=== PATIENT | male | born 1965 | race Caucasian/White ===

== ENCOUNTER 2021-07-06 06:40 | Day surgery (SDC) | payer BC ==
[2021-07-06] VITALS (19 sets, daily range): BP systolic 131–184; BP diastolic 66–84; PULSE 57–75; TEMP 97.8–98.2
[~2021-07-06] VITALS: Ht 185.4 cm; Wt 94.2 kg
[2021-07-06 08:12] LABS: HEMATOCRIT 38.1 % (42.0-52.0); HEMOGLOBIN 12.4 g/dl (13.5-18.0); MEAN CELL VOLUME 94 fl (80.0-100.0); MEAN CORPUSCULAR HEMOGLOBIN 31 pg (27-31); MEAN CORPUSCULAR HGB CONC 33 g/dl (33.0-37.0); MEAN PLATELET VOLUME 9.1 fl (7.4-10.4); PLATELET COUNT 256 K/mm3 (130-400); RED BLOOD COUNT 4.06 M/mm3 (4.20-5.60); REDCELL DISTRIBUTION WIDTH-CV 13.5 % (11.5-14.5)
[2021-07-06] MEDS ORDERED: LOPRESSOR100 MG PO (08:18)
[2021-07-06] MEDS ORDERED: NORVASC 10MG10 MG PO (08:19)
[2021-07-06 08:20] LABS: PROTHROMBIN TIME 11.3 SECONDS (9.7-12.8)
[2021-07-06] MEDS ORDERED: CRESTOR20 MG PO (08:20)
[2021-07-06] MEDS ORDERED: DESYREL 50MG50 MG PO (08:21)
[2021-07-06] MEDS ORDERED: MOBIC 7.5MG7.5 MG PO (08:22)
[2021-07-06 08:23] LABS: PARTIAL THROMBOPLASTIN TIME 32.1 SECONDS (26.0-37.0)
[2021-07-06] MEDS ORDERED: NEURONTIN600 MG/TAB PO (08:23)
[2021-07-06] MEDS ORDERED: PRIL40 PO (08:24)
[2021-07-06] MEDS ORDERED: LASIX 20MG TABL20 MG PO (08:25)
[2021-07-06 08:26] LABS: CALCIUM 9.1 mg/dL (8.4-10.2); CREATININE, serum 1.04 mg/dL (0.72-1.25); POTASSIUM 5.1 mmol/L (3.5-4.5)
[2021-07-06] MEDS ORDERED: CENTRUM1 TA1 PO (08:26)
[2021-07-06] MEDS ORDERED: ASPIRIN 81M81 MG/TA2 PO (08:27)
[2021-07-06] MEDS ORDERED: PREVACID 15MG15 M1 PO (08:28)
[2021-07-06] MEDS ORDERED: B COMPLEX & B121 TAB PO (08:29)
[2021-07-06] MEDS ORDERED: ALEVE 220MG220 MG PO (08:30)
[2021-07-06] MEDS ORDERED: MAGNESIUM PO (08:36)
[2021-07-06] MEDS ORDERED: NITROSTAT0.4 MG/TAB SL (08:37)
[2021-07-06] MEDS ORDERED: NITRO-DUR0.4 MG/PAT TD (08:47)
--- NOTE | 2021-07-06 08:52 | NUR ---
Patient to procedure at [facility],report to Ashish Manley.
--- NOTE | 2021-07-06 08:59 | NUR ---
See merge for all medication administration times, intra and post sedation assessments.
--- NOTE | 2021-07-06 09:52 | NUR ---
Report received pt to transer to inpt.
[2021-07-06] MEDS ORDERED: TOPROL XL100 MG PO (11:21)
--- NOTE | 2021-07-06 11:58 | NUR ---
IMANI DID NOT TAKE VITALS.
[2021-07-06] MEDS ORDERED: NORCO 325 MG-51 TAB PO ×2 (14:45→14:46)
--- NOTE | 2021-07-06 17:09 | NUR ---
Patient completed flat time following heart cath via left femoral. Pressure band taken off of site. Dressing replaced. No signs of bleeding or complications at this time. Call light in reach. Fall percautions in place.
--- NOTE | 2021-07-06 18:50 | NUR ---
Patient admitted to room 354 from slab inspector. Dynamap in use to take post-op vitals. Upon initial assessment dressing clean, dry, and intact. Report recieved from Sindhu. Compression dressing taken off with no issues. BP elevated, [facility] contacted, phone ordered for Norvasc recieved, orders placed, medication administered. PRN medication ordered for back pain. All other VSS. Patient denies any further pain, discomfort, SOA, or further needs at this time. Call light in reach.
[2021-07-07] VITALS: BP 132/75; PULSE 64; TEMP 98
[2021-07-07 04:13] VITALS: BP 132/75; PULSE 64; TEMP 98
[2021-07-07 04:17] VITALS: BP 148/80; PULSE 66; TEMP 98.8
[2021-07-07 06:17] LABS: BASO # 0.1 K/mm3 (0.0-0.2); BASO % 0.4 % (0.0-2.0); EOS # 0.1 K/mm3 (0.0-0.7); EOS % 0.6 % (0.0-4.0); GRAN # 10.7 K/mm3 (1.4-6.5); GRAN % 71.3 % (42.2-75.2); HEMATOCRIT 45.2 % (42.0-52.0); LYMPH # 2.6 K/mm3 (1.2-3.4); LYMPH % 17.4 % (20.0-51.0); MEAN CELL VOLUME 93 fl (80.0-100.0); MEAN CORPUSCULAR HGB CONC 33 g/dl (33.0-37.0); MEAN PLATELET VOLUME 9.1 fl (7.4-10.4); MONO # 1.5 K/mm3 (0.1-0.6); MONO % 9.8 % (1.7-9.3); PLATELET COUNT 282 K/mm3 (130-400); RED BLOOD COUNT 4.86 M/mm3 (4.20-5.60); REDCELL DISTRIBUTION WIDTH-CV 13.3 % (11.5-14.5)
[2021-07-07 06:18] LABS: HEMOGLOBIN 14.8 g/dl (13.5-18.0); MEAN CORPUSCULAR HEMOGLOBIN 30 pg (27-31)
[2021-07-07 07:16] LABS: CALCIUM 10.1 mg/dL (8.4-10.2); CREATININE, serum 0.96 mg/dL (0.72-1.25)
[2021-07-07 07:46] VITALS: BP 142/75; PULSE 72; TEMP 97.9
[2021-07-07 09:00] VITALS: BP 142/75; PULSE 72; TEMP 97.9
--- NOTE | 2021-07-07 09:38 | NUR ---
slag worker met with patient to discuss discharge plan. Patient currently lives in [place] with his Kelsey ([phone]). Patient reports that he is independent with his ADL's and does not utilize any DME or oxygen at home. PCP is Dr. Padron and he utilizes [facility] for medications with no cost difficulty. [facility] currently [facility] and is not interested in establishing one at this time. Patient is planning on returning home and states that his will be the one picking him up. Discharge plan: Home with spouse
--- NOTE | 2021-07-07 10:34 | NUR ---
Initial visit; Patient thanked Fin[employer] for looking in on him and offering encouragement and God's blessings. Finish Carpenter will keep patient in her prayers.
[2021-07-07] MEDS ORDERED: BRILINTA90 MG PO (10:57)
[2021-07-07] MEDS ORDERED: RANEXA 500MG T500 MG PO (10:58)
[2021-07-07 11:25] VITALS: BP 134/70; PULSE 70; TEMP 97.8
--- NOTE | 2021-07-07 12:33 | NUR ---
PT DISCHARGE INSTRUCTIONS COMPLETE. INFORMATION GIVEN ABOUT MEDICATIONS AND FOLLOW UP APPOINTMENTS. IV REMOVED. ALL QUESTIONS ANSWERED.
--- NOTE | 2021-07-07 13:01 | NUR ---
Primary nurse was assisted with [phone] patient care by [employer] student Paloma Mclaughlin and [employer] instructor Reanna Zhong MSN, RN.
== END 2021-07-07 12:34 | disposition home or self-care (01) ==
LOC: COL.CAR 06:40 → MEDICAL 10:43 → COL.CAR 07-07 12:34
PROVIDERS: Internal Medicine Cardiovascular Disease
DX: I25.119 Atherosclerotic heart disease of native coronary artery with unspecified angina pectoris (principal); I73.9 Peripheral vascular disease, unspecified; I10 Essential (primary) hypertension; E78.2 Mixed hyperlipidemia; I65.23 Occlusion and stenosis of bilateral carotid arteries; Z95.1 Presence of aortocoronary bypass graft; Z87.891 Personal history of nicotine dependence; Z79.82 Long term (current) use of aspirin
CPT/HCPCS: OP; C1725; C1760; C1769; C1874; C1887; C1894; C9600; J0583; J1644; J2250; J3010; Q9967

== ENCOUNTER → 2021-11-03 | Outpatient (CLI) | payer BC ==
[~2021-11-03] MED LIST: ALEVE 220MG220 MG PO; ASPIRIN 81M81 MG/TA2 PO; B COMPLEX & B121 TAB PO; BRILINTA90 MG PO; CENTRUM1 TA1 PO; CRESTOR20 MG PO; DESYREL 50MG50 MG PO; LASIX 20MG TABL20 MG PO; LOPRESSOR100 MG PO; MAGNESIUM PO; MOBIC 7.5MG7.5 MG PO; NEURONTIN600 MG/TAB PO; NITRO-DUR0.4 MG/PAT TD; NITROSTAT0.4 MG/TAB SL; NORCO 325 MG-51 TAB PO; NORVASC 10MG10 MG PO; PREVACID 15MG15 M1 PO; PRIL40 PO; RANEXA 500MG T500 MG PO; TOPROL XL100 MG PO
== END ==
LOC: ZCOL.LAB 19:48
DX: Z11.9 Encounter for screening for infectious and parasitic diseases, unspecified (principal)

== ENCOUNTER 2022-03-09 07:14 | Day surgery (SDC) | payer BC ==
[~2022-03-09] VITALS: Ht 185.4 cm; Wt 90.0 kg
[2022-03-09] VITALS (17 sets, daily range): BP systolic 115–155; BP diastolic 66–83; PULSE 60–73; TEMP 97.3–98.2
[2022-03-09 08:15] LABS: HEMOGLOBIN 10.4 g/dl (13.5-18.0); MEAN CELL VOLUME 92 fl (80.0-100.0); MEAN CORPUSCULAR HEMOGLOBIN 30 pg (27-31); MEAN CORPUSCULAR HGB CONC 32 g/dl (33.0-37.0); MEAN PLATELET VOLUME 8.7 fl (7.4-10.4); PLATELET COUNT 323 K/mm3 (130-400); RED BLOOD COUNT 3.51 M/mm3 (4.20-5.60); REDCELL DISTRIBUTION WIDTH-CV 14.3 % (11.5-14.5)
[2022-03-09 08:18] LABS: INR 1.1 (0.8-3.0); PROTHROMBIN TIME 12.2 SECONDS (9.7-12.8)
[2022-03-09 08:20] LABS: PARTIAL THROMBOPLASTIN TIME 38.8 SECONDS (26.0-37.0)
[2022-03-09 08:24] LABS: CALCIUM 9.2 mg/dL (8.4-10.2); CREATININE, serum 1.12 mg/dL (0.72-1.25); POTASSIUM 4.7 mmol/L (3.5-4.5)
[2022-03-09] MEDS ORDERED: NATURAL E400 IU PO (08:34)
[2022-03-09 08:38] LABS: HEMATOCRIT 32.3 % (42.0-52.0)
[2022-03-09] MEDS ORDERED: ROBAXIN 75750 MG/TAB PO (08:43)
[2022-03-09] MEDS ORDERED: PROBIOTIC BLEN1 EACH PO (08:44)
[2022-03-09] MEDS ORDERED: [UNRECOGNIZED DRUG - OTHER] PO (08:48)
[2022-03-09] MEDS ORDERED: RANEXA 500MG T500 MG PO (08:48)
[2022-03-09] MEDS ORDERED: BENICAR40 MG PO (08:50)
[2022-03-09] MEDS ORDERED: BIOTIN5000 MCG PO (08:50)
[2022-03-09] MEDS ORDERED: EFFIENT10 MG PO (08:50)
--- NOTE | 2022-03-09 09:13 | NUR ---
Pt to procedure.Report to Ashish jones.
--- NOTE | 2022-03-09 09:16 | NUR ---
SEE MERGE DOCUMENTATION FOR MEDICATION ADMINISTRATION AND INTRA/POST PROCEDURE SEDATION ASSESSMENTS.
--- NOTE | 2022-03-09 10:09 | NUR ---
Report received pt to transfer to medical floor.
--- NOTE | 2022-03-09 17:50 | NUR ---
PT ALERT AND ORIENTED RESTING IN BED. PT VITALS STABLE ON ROOM AIR. PT DENIES PAIN OR DISCOMFORT AFTER CARDIAC CATH. CALL LIGHT WITHIN REACH. RIGHT FEMORAL DRESSING CLEAN AND DRY. NO FURTHER NEEDS IDENTIFIED.
[2022-03-10] VITALS: BP 127/55; PULSE 75; TEMP 98.7
[2022-03-10 01:09] VITALS: BP 127/55; PULSE 75; TEMP 98.7
[2022-03-10 04:00] VITALS: BP 109/63; PULSE 71; TEMP 98.4
[2022-03-10 04:12] VITALS: BP 109/63; PULSE 71; TEMP 98.4
[2022-03-10 06:24] LABS: BASO # 0.1 K/mm3 (0.0-0.2); BASO % 0.5 % (0.0-2.0); EOS # 0.1 K/mm3 (0.0-0.7); EOS % 1.4 % (0.0-4.0); GRAN # 7.5 K/mm3 (1.4-6.5); GRAN % 74.5 % (42.2-75.2); HEMATOCRIT 37.9 % (42.0-52.0); HEMOGLOBIN 12.3 g/dl (13.5-18.0); LYMPH # 1.5 K/mm3 (1.2-3.4); LYMPH % 14.6 % (20.0-51.0); MEAN CELL VOLUME 92 fl (80.0-100.0); MEAN CORPUSCULAR HEMOGLOBIN 30 pg (27-31); MEAN CORPUSCULAR HGB CONC 33 g/dl (33.0-37.0); MEAN PLATELET VOLUME 8.9 fl (7.4-10.4); MONO # 0.9 K/mm3 (0.1-0.6); MONO % 8.7 % (1.7-9.3); PLATELET COUNT 337 K/mm3 (130-400); RED BLOOD COUNT 4.14 M/mm3 (4.20-5.60); REDCELL DISTRIBUTION WIDTH-CV 14.2 % (11.5-14.5)
[2022-03-10 06:40] LABS: CALCIUM 9.4 mg/dL (8.4-10.2); CREATININE, serum 0.78 mg/dL (0.72-1.25); POTASSIUM 4.5 mmol/L (3.5-4.5)
[2022-03-10 07:59] VITALS: BP 139/78; PULSE 76; TEMP 98
--- NOTE | 2022-03-10 08:00 | NUR ---
Patient laying in bed, A&Ox4. VSS. IV CDI. Reports chronic pain in back from laying in bed. RT femoral site CDI. No further needs expressed. Call light within reach
--- NOTE | 2022-03-10 10:08 | NUR ---
Initial visit; Patient thanked commission associate for looking in on on him though declined [facility].
--- NOTE | 2022-03-10 10:32 | NUR ---
Reviewed discharge instructions for femoral heart catheterization. Cleaning site with mild soap and water, pat dry. Discussed monitoring for redness, hot to touch, inflammation, or temperature >100.4. Discussed when to contact the physician for signs of symptoms of complications or [place]. Also reviewed risk factors for heart disease. Covered applicable modifiable risk factors including the following: tobacco cessation, HTN, hyperlipidemia, diabetes, overweight/obesity, sedentary lifestyle, and stress/depression. Patient verbalized understanding. Referral sent to [facility] with patient s permission. Pt states he has attended [facility] previously - staff encouraged follow up with ongoing cardiovascular disease. Approx 5-8 min spend with patient face to face.
--- NOTE | 2022-03-10 12:03 | NUR ---
Discharge paperwork reviewed with the patient and at the bedside. Patient verbalized an understanding to follow doctors orders. PAtient to f/u with cardiology about stent information/cards. IV removed, tip intact. Cath site RT femorl CDI. Patient ambulating independently to vehicle. No further needs expressed.
== END 2022-03-10 12:05 | disposition home or self-care (01) ==
LOC: COL.CAR 07:14 → MEDICAL 11:04 → COL.CAR 03-10 12:05
PROVIDERS: Internal Medicine Cardiovascular Disease
DX: I25.10 Atherosclerotic heart disease of native coronary artery without angina pectoris (principal); I25.82 Chronic total occlusion of coronary artery; E78.2 Mixed hyperlipidemia; I10 Essential (primary) hypertension; I73.9 Peripheral vascular disease, unspecified; I34.0 Nonrheumatic mitral (valve) insufficiency; Z79.899 Other long term (current) drug therapy; Z87.891 Personal history of nicotine dependence; Z95.5 Presence of coronary angioplasty implant and graft; Z79.82 Long term (current) use of aspirin
CPT/HCPCS: OP; C1760; C1769; C1874; C1887; C1894; C9600; J0583; J1644; J2250; J3010; Q9967